=== PATIENT | female | born 1930 | race Hispanic/Latino ===

== ENCOUNTER 2017-11-15 17:17 | Emergency (ER) | payer MEDICARE ==
[2017-11-15 17:30] VITALS: BMI 27.3
[2017-11-15 17:38] VITALS: TEMP 98
--- NOTE | 2017-11-15 19:09 | ED PDOC ---
Arrival/HPI - General Historian: Patient - General Chief Complaint: Trauma Time Seen by Provider: 11/15/17 17:48 - History of Present Illness Narrative History of Present Illness (Text): Patient is a 86 year old female with a past medical history of hypertension, hyperlipidemia, osteoporosis who presents to the emergency room for evaluation and treatment for trauma secondary to fall. Patient states she was pulling her shopping cart and slipped on the pavement. States she fell on her left side and prepared for impact with an outstretched left arm. Admits to hitting head on pavement. Denies loss of consciousness. Denies dizziness and confusion. Admits to baseline neck discomfort which began 3 months ago. States fall did not exacerbate discomfort. Also admits to localized left sided hip discomfort secondary to fall. Further denies fever, chills, headache, dizziness, chest pain , palpitations, SOB, abdominal pain, nausea, vomiting, diarrhea, constipation, and urinary symptoms. (Jhonathan Dawkins) Past Medical History - Provider Review Nursing Documentation Reviewed: Yes - Travel History Have you recently traveled outside [place] w/in the past 3 mons?: No - Infectious Disease Hx of Infectious Diseases: None - Cardiac Hx Cardiac Disorders: Yes Hx Hypertension: Yes - Pulmonary Hx Respiratory Disorders: No - Neurological Hx Neurological Disorder: No - HEENT Hx HEENT Disorder: No - Renal Hx Renal Disorder: No - Endocrine/Metabolic Hx Endocrine Disorders: No - Hematological/Oncological Hx Blood Disorders: No - Integumentary Hx Dermatological Disorder: No - Musculoskeletal/Rheumatological Hx Musculoskeletal Disorders: No - Gastrointestinal Hx Gastrointestinal Disorders: No - Genitourinary/Gynecological Hx Genitourinary Disorders: No - Psychiatric Hx Psychophysiologic Disorder: No Hx Substance Use: No - Suicidal Assessment Feels Threatened In Home Enviroment: No Family/Social History - Physician Review Nursing Documentation Reviewed: Yes Family/Social History: Unknown Family HX Smoking Status: Former Smoker Hx Alcohol Use: No Hx Substance Use: No Hx Substance Use Treatment: No Allergies/Home Meds Allergies/Adverse Reactions: Allergies No Known Allergies Allergy (Verified 02/14/16 15:54) Home Medications: Home Meds Medication Instructions Recorded Confirmed Alprazolam [Xanax] 1 tab PO PRN PRN 02/14/16 11/15/17 Potassium Chloride [Klor-Con 10] 10 meq PO TID 02/14/16 11/15/17 amLODIPine [Norvasc] 5 mg PO DAILY 02/14/16 11/15/17 Simvastatin [Zocor] 10 mg PO DAILY 11/15/17 11/15/17 Valsartan [Diovan] 1 tab PO DAILY 11/15/17 11/15/17 Review of Systems - Review of Systems Constitutional: Normal Eyes: Normal ENT: Normal Respiratory: Normal Cardiovascular: Normal Gastrointestinal: Normal Musculoskeletal: Neck Pain Skin: Skin Lesions Neurological: Normal. absent: Headache, Dizziness, Focal Weakness, Gait Changes , Speech Changes, Facial Droop Endocrine: Normal Hemo/Lymphatic: Normal Psychiatric: Normal Physical Exam Temperature: Afebrile Blood Pressure: Hypertensive Pulse: Regular Respiratory Rate: Normal Appearance: Positive for: Well-Appearing, Non-Toxic, Comfortable Pain Distress: None Mental Status: Positive for: Alert and Oriented X 3 - Systems Exam Head: Present: Abrasion Pupils: Present: PERRL Extroacular Muscles: Present: EOMI Conjunctiva: Present: Normal Mouth: Present: Moist Mucous Membranes Nose (External): Present: Atraumatic Nose (Internal): Present: Normal Inspection Neck: Present: Normal Range of Motion Respiratory/Chest: Present: Clear to Auscultation, Good Air Exchange. No: Respiratory Distress, Accessory Muscle Use Cardiovascular: Present: Regular Rate and Rhythm, Normal S1, S2 Abdomen: Present: Normal Bowel Sounds. No: Tenderness, Distention, Peritoneal Signs, Rebound, Guarding Back: Present: Normal Inspection Upper Extremity: Present: Neurovascularly Intact, Capillary Refill < 2s, Other ( ecchymosis/hematoma left hand ) Lower Extremity: Present: Normal Inspection Neurological: Present: GCS=15, CN II-XII Intact, Speech Normal, Motor Func Grossly Intact, Normal Sensory Function Skin: Present: Warm, Dry, Abrasion Psychiatric: Present: Alert, Oriented x 3, Normal Insight, Normal Concentration Vital Signs Temp Pulse Resp BP Pulse Ox 11/15/17 17:37 98.0 F 70 18 163/83 H 95 Medical Decision Making ED Course and Treatment: Assessment and Plan: Patient is a 86 year old female with a past medical history of hypertension, hyperlipidemia, osteoporosis who presents to the emergency room for evaluation and treatment for trauma secondary to fall. Mechanical Fall Left Wrist Hematoma Facial wound Hx of Htn Hx of HPL Hx of OP 11/15/17 18:38 - CT of head non-contrast - CT of neck - left hip xray 11/15/17 20:55 - facial wound cleaned with alcohol wipe, skin approximated and dermabond applied 11/15/17 21:49 - CT of Neck: Negative for acute fracture - CT of head non-contrast: No CT evidence of acute intracranial abnormality - Tetanus booster - Toradol 15mg IM x 1 11/15/17 21:51 - ok to discharge home (Jhonathan Dawkins) 11/15/17 22:00 Patient seen by resident and then evaluated by me. She had a mechanical fall and has abrasion to L forehead that was repaired with dermabond. Neurologically intact. CT head and CT c-spine negative. Hip xray negative. Ambulating around the ED without issue. No complaint of chest pain, shortness of breath, or abdominal pain. (Paloma Jacobsen) - RAD Interpretation Narrative RAD Interpretations (Text): 11/15/17 21:50 CT Head Without Intravenous Contrast FINDINGS: Brain: Atrophy. Bilateral white matter hypoattenuation most consistent with chronic ischemic small vessel changes. Vascular calcification. Benign calcifications. No hemorrhage. No edema. Ventricles: No hydrocephalus. Bones/joints: Skull is intact. Soft tissues: No acute abnormality as visualized. Sinuses: Complete opacification of the right maxillary sinus with chronic periosteal thickening. Calcification noted within likely representing inspissated mucus. Mastoid air cells: No mastoid effusion. IMPRESSION: No CT evidence of acute intracranial abnormality. Chronic changes as above. Complete opacification of the right maxillary sinus with chronic periosteal thickening. Calcification noted within likely representing inspissated mucus. CT Cervical Spine Without Intravenous Contrast FINDINGS: Vertebrae/discs/spinal canal/neural foramina: No acute fracture. Multilevel degenerative changes. Degenerative disc disease with loss in disc height. Associated vertebral body endplate changes. Disc osteophyte formation. Mild vertebral body height loss. Facet arthropathy. Associated impression on the central canal and neural foraminal narrowing. No severe spinal canal stenosis. Straightening/reversal of the cervical lordosis which appears degenerative in nature. Soft tissues: Carotid calcification. Lung apices: Emphysematous changes. Coarsened interstitial markings. IMPRESSION: Negative for acute fracture. Please see additional details/findings as above. Correlate clinically. Followup as warranted. (Jhonathan Dawkins) Radiology Orders: 11/15/17 18:38 HEAD W/O CONTRAST [CT] Stat HIP MIN 2V W/ PELVIS LT [RAD] Stat 11/15/17 18:40 CERVICAL SPINE W/O CONTRAST [CT] Stat - Medication Orders Current Medication Orders: Discontinued Medications Ketorolac Tromethamine (Toradol) 15 mg IM STAT STA Stop: 11/15/17 21:32 Last Admin: 11/15/17 21:50 Dose: 15 mg MAR Pain Assessment Document 11/15/17 21:50 CNR (Rec: 11/15/17 21:50 CNR [id number]) Pain Reassessment Is this a pain reassessment? No IM Administration Charges Document 11/15/17 21:50 CNR (Rec: 11/15/17 21:50 CNR [id number]) Injection Site MAR Injection Site Left Deltoid Charges for Administration # of IM Administrations 1 Tetanus/Reduced Diphtheria/Acell Pertussis (Boostrix Vaccine Inj) 0.5 ml IM .ONCE ONE Stop: 11/15/17 21:25 Last Admin: 11/15/17 21:31 Dose: 0.5 ml Immunization Registry Document 11/15/17 21:31 CNR (Rec: 11/15/17 21:31 CNR [id number]) Immunization Registry Consent Date 11/15/17 Disposition/Present on Arrival - Present on Arrival Any Indicators Present on Arrival: No History of DVT/PE: No History of Uncontrolled Diabetes: No Urinary Catheter: No History of Decub. Ulcer: No History Surgical Site Infection Following: None - Disposition Have Diagnosis and Disposition been Completed?: Yes Disposition Time: 21:46 Patient Plan: Discharge - Disposition Diagnosis: Fall Disposition: HOME/ ROUTINE Condition: GOOD Additional Instructions: RAFAEL WELCH, thank you for letting us take care of you today. Your provider was Paloma Jacobsen MD and you were treated for FALL. The emergency medical care you received today was directed at your acute symptoms. If you were prescribed any medication, please fill it and take as directed. It may take several days for your symptoms to resolve. Return to the Emergency Department if your symptoms worsen, do not improve, or if you have any other problems. Please contact your doctor or call one of the physicians/clinics you have been referred to that are listed on the Patient Visit Information form that is included in your discharge packet. Bring any paperwork you were given at discharge with you along with any medications you are taking to your follow up visit. Our treatment cannot replace ongoing medical care by a primary care provider outside of the emergency department. Thank you for allowing the [facility] team to be part of your care today. If you had an X-Ray or CT scan: A Radiologist will review the ED reading if any change in treatment is needed we will contact you. If you had a blood, urine, or wound culture: It will take several days for the results, if any change in treatment is needed we will contact you. If you had an STI test: It will take 48 hours for the results. Please call after 1 week if you have not heard back. Referrals: Dipesh Joe MD [Primary Care Provider] - Follow up with primary Forms: [employer] (German)
--- NOTE | 2017-11-15 21:09 | CT ---
EXAM: CT Head Without Intravenous Contrast CLINICAL HISTORY: 86 years old, female; Injury or trauma; Fall; Initial encounter; Concussion / head injury TECHNIQUE: Axial computed tomography images of the head/brain without intravenous contrast. All CT scans at this facility use one or more dose reduction techniques, viz.: automated exposure control; ma/kV adjustment per patient size (including targeted exams where dose is matched to indication; i.e. head); or iterative reconstruction technique. Coronal and sagittal reformatted images were created and reviewed. COMPARISON: No relevant prior studies available. FINDINGS: Brain: Atrophy. Bilateral white matter hypoattenuation most consistent with chronic ischemic small vessel changes. Vascular calcification. Benign calcifications. No hemorrhage. No edema. Ventricles: No hydrocephalus. Bones/joints: Skull is intact. Soft tissues: No acute abnormality as visualized. Sinuses: Complete opacification of the right maxillary sinus with chronic periosteal thickening. Calcification noted within likely representing inspissated mucus. Mastoid air cells: No mastoid effusion. IMPRESSION: No CT evidence of acute intracranial abnormality. Chronic changes as above. Complete opacification of the right maxillary sinus with chronic periosteal thickening. Calcification noted within likely representing inspissated mucus.
--- NOTE | 2017-11-15 21:14 | CT ---
EXAM: CT Cervical Spine Without Intravenous Contrast CLINICAL HISTORY: 86 years old, female; Injury or trauma; Fall; Initial encounter; Concussion /head injury TECHNIQUE: Axial computed tomography images of the cervical spine without intravenous contrast. All CT scans at this facility use one or more dose reduction techniques, viz.: automated exposure control; ma/kV adjustment per patient size (including targeted exams where dose is matched to indication; i.e. head); or iterative reconstruction technique. Coronal and sagittal reformatted images were created and reviewed. COMPARISON: No relevant prior studies available. FINDINGS: Vertebrae/discs/spinal canal/neural foramina: No acute fracture. Multilevel degenerative changes. Degenerative disc disease with loss in disc height. Associated vertebral body endplate changes. Disc osteophyte formation. Mild vertebral body height loss. Facet arthropathy. Associated impression on the central canal and neural foraminal narrowing. No severe spinal canal stenosis. Straightening/reversal of the cervical lordosis which appears degenerative in nature. Soft tissues: Carotid calcification. Lung apices: Emphysematous changes. Coarsened interstitial markings. IMPRESSION: Negative for acute fracture. Please see additional details/findings as above. Correlate clinically. Followup as warranted.
[2017-11-15] MEDS ORDERED: TDAP Vaccine 0.5 mL Syr IM ONE (21:24)
[2017-11-15 22:07] VITALS: BP 133/86; PULSE 74; RESP 18; O2SAT 99
--- NOTE | 2017-11-16 10:36 | RAD ---
PROCEDURE: Left Hip X-ray and pelvis Radiographs. HISTORY: fall COMPARISON: None. FINDINGS: BONES: Normal. No fracture. JOINTS: Normal. SOFT TISSUES: Normal. OTHER FINDINGS: None. IMPRESSION: Negative study
== END 2017-11-15 22:06 | disposition home or self-care (01) ==
LOC: ED 17:17
DX: Z03.89 Encounter for observation for other suspected diseases and conditions ruled out (principal); W19.XXXA Unspecified fall, initial encounter; E78.5 Hyperlipidemia, unspecified; I10 Essential (primary) hypertension; Z87.891 Personal history of nicotine dependence; Z23 Encounter for immunization
CPT/HCPCS: 70450; 72125; 73502; 90471; 90715; 96372; 99284; J1885